=== PATIENT | male | born 1955 | race Caucasian/White ===

== ENCOUNTER 2023-04-26 11:08 | Inpatient (IN) | payer MEDICARE, SELFPAY ==
[2023-04-26 13:12] VITALS: BMI 35.2
[2023-04-26] MEDS ORDERED: Ondansetron ODT 4 MG TAB PO PRN (13:50)
[2023-04-26] MEDS ORDERED: Acetaminophen 325 MG TAB PO PRN (13:50)
[2023-04-26] MEDS ORDERED: Heparin 10,000 UNITS/ 10 ML VIAL SLOW IVP SCH (14:00)
[2023-04-26] MEDS ORDERED: Heparin 25,000 units/D5W 500 ML IVPB SCH (14:00)
[2023-04-26] MEDS ORDERED: hydrALAZINE 20 MG/ML VIAL SLOW IVP PRN (14:12)
[2023-04-26 14:13] LABS: Hematocrit 42.9 % (42.0-52.0); Hemoglobin 14.8 g/dL (14.0-18.0); Platelet Count 238 10x3/uL (130-400)
[2023-04-26 14:21] LABS: Hemoglobin A1c 5.3 % (4.0-6.0)
[2023-04-26 14:34] LABS: Cardiac Risk 5.4 (Less than 4.5)
[2023-04-26] MEDS ORDERED: Lorazepam 1 MG TAB PO PRN (14:59)
[2023-04-26] MEDS ORDERED: Lorazepam 2 MG/ML VIAL IM PRN (14:59)
[2023-04-26] MEDS ORDERED: Electrolyte Replacement Protocol 1 EACH FS SCH (15:00)
[2023-04-26 15:36] LABS: Bilirubin, Direct 0.3 mg/dL (0.1-0.3); Phosphorus 3.2 mg/dL (2.3-4.7)
[2023-04-26 15:40] LABS: #Monocytes 0.8 thou/uL (0.11-0.59); #Neutrophils 9.7 thou/uL (1.40-6.50); %Basophils 0.2 % (0.0-1.0); %Eosinophils 0.1 % (0.0-10.0); %Lymphocytes 16.5 % (21.0-51.0); %Monocytes 6.1 % (0.0-10.0); %Neutrophils 76.4 % (42.0-75.0); Hematocrit 43.2 % (42.0-52.0); Mean Corpuscular HGB CONC 34.7 g/dL (32.0-36.0); Mean Corpuscular Hemoglobin 30.8 pg (27.0-31.0); Mean Corpuscular Volume 88.7 fl (78.0-98.0); Mean Platelet Volume 8.9 fL (7.4-10.4); Platelet Count 262 10x3/uL (130-400); RBC Distribution Width 12.1 % (11.5-14.5); Red Blood Cell (RBC) Count 4.87 mill/uL (4.70-6.10); White Blood Cell (WBC) Count 12.7 10x3/uL (4.8-10.8)
[2023-04-26] MEDS ORDERED: HYDROcodone/Acetaminophen 10/325 mg Tablet PO PRN (16:00)
[2023-04-26] MEDS: Thiamine HCl 200 MG/2 ML VIAL SLOW IVP SCH (17:26)
[2023-04-26] MEDS ORDERED: Guaifenesin DM 100-10/5 ML UDCUP PO PRN (19:49)
[2023-04-27] MEDS ORDERED: Heparin 25,000 units/D5W 500 ML IVPB SCH (01:45)
[2023-04-27] MEDS: Folic Acid 1 MG TAB PO SCH (07:30)
[2023-04-27] MEDS: Multivit, Therapeutic 1 TAB PO SCH (07:34)
[2023-04-27] MEDS ORDERED: Magnesium 2 GM/50 ML(in water) 2 GM in Premix Bag 1 BAG IVPB SCH (08:00)
[2023-04-27 08:28] LABS: #Eosinphils 0.1 thou/uL (0.0-0.7); #Monocytes 0.7 thou/uL (0.11-0.59); #Neutrophils 8.2 thou/uL (1.40-6.50); %Basophils 0.4 % (0.0-1.0); %Eosinophils 0.5 % (0.0-10.0); %Lymphocytes 18.4 % (21.0-51.0); %Neutrophils 73.8 % (42.0-75.0); Hematocrit 43.3 % (42.0-52.0); Hemoglobin 14.5 g/dL (14.0-18.0); Mean Corpuscular HGB CONC 33.5 g/dL (32.0-36.0); Mean Corpuscular Volume 89.5 fl (78.0-98.0); Mean Platelet Volume 8.7 fL (7.4-10.4); Platelet Count 252 10x3/uL (130-400); RBC Distribution Width 12.2 % (11.5-14.5); Red Blood Cell (RBC) Count 4.84 mill/uL (4.70-6.10); White Blood Cell (WBC) Count 11.1 10x3/uL (4.8-10.8)
[2023-04-27 08:57] LABS: ALT (SGPT) 22 U/L (8-55); AST (SGOT) 19 U/L (5-34); Albumin 3.6 g/dL (3.4-4.8); Alkaline Phosphatase 76 U/L (40-110); Anion Gap 14 mmol/L (10-20); BUN (Urea Nitrogen) 10 mg/dL (8.4-25.7); Bilirubin, Total 0.7 mg/dL (0.2-1.2); Calc. Creatinine Clearance 118 mL/min (70-130); Carbon Dioxide 22 mmol/L (23-31); Chloride 102 mmol/L (98-107); Estimated GFR 97; Globulin 3.7 g/dL (2.4-3.5); Glucose 175 mg/dL (80-115); Potassium 4.1 mmol/L (3.5-5.1); Protein, Total 7.3 g/dL (5.8-8.1); Sodium 134 mmol/L (136-145)
[2023-04-27 10:49] LABS: Syphilis Antibody Nonreactive (Nonreactive); Syphilis Antibody Index 0.14 S/CO (<1.00 Non-Reactive)
[2023-04-27] MEDS ORDERED: Apixaban 5 MG TAB PO SCH (12:45)
[2023-04-27] MEDS ORDERED: Lorazepam 1 MG TAB PO PRN (14:59)
[2023-04-27] MEDS: Thiamine HCl 200 MG/2 ML VIAL SLOW IVP SCH (15:33)
[2023-04-27 16:01] LABS: INR-International Normal Ratio 1.2; PTT 35.9 sec (22.9-36.1); Prothrombin Time 16.1 sec (12.0-14.7)
[2023-04-27 16:02] LABS: D-Dimer Test 1.99 *mcg/mL (0.27-0.43)
[2023-04-27] MEDS: Apixaban 5 MG TAB PO SCH (20:35)
[2023-04-27] MEDS ORDERED: Atorvastatin Calcium 40 MG TAB PO SCH (21:00)
[2023-04-28 08:48] VITALS: BP 149/77
[2023-04-28] MEDS: Folic Acid 1 MG TAB PO SCH (08:48)
[2023-04-28] MEDS: Apixaban 5 MG TAB PO SCH (08:48)
[2023-04-28] MEDS: Multivit, Therapeutic 1 TAB PO SCH (08:48)
[2023-04-28 08:49] LABS: #Eosinphils 0.1 thou/uL (0.0-0.7); #Monocytes 1.1 thou/uL (0.11-0.59); #Neutrophils 8.1 thou/uL (1.40-6.50); %Basophils 0.3 % (0.0-1.0); %Eosinophils 0.9 % (0.0-10.0); %Lymphocytes 14.3 % (21.0-51.0); %Monocytes 9.7 % (0.0-10.0); %Neutrophils 73.8 % (42.0-75.0); Hematocrit 40.2 % (42.0-52.0); Mean Corpuscular HGB CONC 34.8 g/dL (32.0-36.0); Mean Corpuscular Hemoglobin 30.2 pg (27.0-31.0); Mean Corpuscular Volume 86.8 fl (78.0-98.0); Mean Platelet Volume 8.6 fL (7.4-10.4); Platelet Count 272 10x3/uL (130-400); RBC Distribution Width 12.2 % (11.5-14.5); Red Blood Cell (RBC) Count 4.63 mill/uL (4.70-6.10)
[2023-04-28] MEDS ORDERED: Lisinopril 10 MG TAB PO SCH (09:00)
[2023-04-28] MEDS ORDERED: CO Q-10 CAPSULE 50 MG PO SCH (09:00)
[2023-04-28 09:19] LABS: ALT (SGPT) 22 U/L (8-55); AST (SGOT) 21 U/L (5-34); Albumin 3.4 g/dL (3.4-4.8); Alkaline Phosphatase 71 U/L (40-110); Anion Gap 12 mmol/L (10-20); BUN (Urea Nitrogen) 10 mg/dL (8.4-25.7); Bilirubin, Total 0.6 mg/dL (0.2-1.2); Calc. Creatinine Clearance 119 mL/min (70-130); Calcium 9.1 mg/dL (7.8-10.44); Carbon Dioxide 24 mmol/L (23-31); Chloride 104 mmol/L (98-107); Estimated GFR 97; Globulin 3.6 g/dL (2.4-3.5); Glucose 128 mg/dL (80-115); Potassium 3.7 mmol/L (3.5-5.1); Sodium 136 mmol/L (136-145)
[2023-04-28 13:58] LABS: Hematocrit 41.9 % (42.0-52.0); Hemoglobin 14.4 g/dL (14.0-18.0); Platelet Count 317 10x3/uL (130-400)
[2023-04-28] MEDS: Thiamine HCl 200 MG/2 ML VIAL SLOW IVP SCH (14:49)
[2023-04-28] MEDS ORDERED: Lorazepam 1 MG TAB PO PRN (14:59)
[2023-04-28 16:17] VITALS: TEMP 98.7
[2023-04-29] MEDS ORDERED: Lorazepam 0.5 MG TAB PO PRN (14:59)
[2023-04-29] MEDS ORDERED: Thiamine 100 MG TAB PO SCH (15:00)
[2023-04-30 14:43] LABS: Cardiolipin IgA Ab 3.8 APL-U/mL (<14 Negative); Cardiolipin IgM Ab 1.9 MPL-U/mL (<10 Negative); EliA APS New Method **** NEW METHOD ****
[2023-05-01 19:36] LABS: Activated Protein C Resistance 2.8 ratio (.)
[2023-05-04] MEDS ORDERED: Apixaban 5 MG TAB PO SCH (09:00)
[2023-05-04 13:42] LABS: HEX PHOS LA Tube 1 44.5 SEC; HEX PHOS LA Tube 2 38.1 SEC; Hexagonal Phospholipid Neut 6.4 SEC (0-8.0)
== END 2023-04-28 17:10 | disposition home or self-care (01) | DRG 176 ==
LOC: IMCU/EMU 12:43
PROVIDERS: ADMIT Family Medicine; ATTEND Family Medicine
DX: I26.99 Other pulmonary embolism without acute cor pulmonale (principal); F10.99 Alcohol use, unspecified with unspecified alcohol-induced disorder; I10 Essential (primary) hypertension; L25.9 Unspecified contact dermatitis, unspecified cause; K44.9 Diaphragmatic hernia without obstruction or gangrene; K76.89 Other specified diseases of liver; I16.0 Hypertensive urgency; I44.0 Atrioventricular block, first degree; E78.5 Hyperlipidemia, unspecified; F17.229 Nicotine dependence, chewing tobacco, with unspecified nicotine-induced disorders; Z90.49 Acquired absence of other specified parts of digestive tract; Z82.49 Family history of ischemic heart disease and other diseases of the circulatory system; Z80.41 Family history of malignant neoplasm of ovary; Z80.51 Family history of malignant neoplasm of kidney; M79.81 Nontraumatic hematoma of soft tissue; Z86.16 Personal history of COVID-19
CPT/HCPCS: 36415; 80053; 80061; 82248; 83036; 83090; 83735; 83880; 84100; 84443; 85014; 85018; 85025; 85049; 85300; 85303; 85305; 85307; 85379; 85598; 85610; 85730; 86147; 86780; 93005; 93010; 93970; J0360; J1644; J3411; J3475